=== PATIENT | female | born 1940 | race Caucasian/White ===

== ENCOUNTER 2022-08-13 21:27 | Inpatient (IN) | payer MEDICARE, BC ==
[2022-08-14 00:13] LABS: INR-International Normal Ratio 1.2; PTT 26.4 sec (22.9-36.1); Prothrombin Time 15.4 sec (12.0-14.7)
[2022-08-14 00:25] LABS: #Eosinphils 0.1 thou/uL (0.0-0.7); #Lymphocytes 0.9 thou/uL (1.20-3.40); #Monocytes 0.6 thou/uL (0.11-0.59); #Neutrophils 6.2 thou/uL (1.40-6.50); %Basophils 0.2 % (0.0-1.0); %Lymphocytes 11.1 % (21.0-51.0); %Monocytes 7.3 % (0.0-10.0); %Neutrophils 80.5 % (42.0-75.0); Hemoglobin 13.6 g/dL (12.0-16.0); Mean Corpuscular HGB CONC 33.6 g/dL (32.0-36.0); Mean Corpuscular Volume 95.3 fl (78.0-98.0); Mean Platelet Volume 6.8 fL (7.4-10.4); Platelet Count 255 10x3/uL (130-400); RBC Distribution Width 12.5 % (11.5-14.5); Red Blood Cell (RBC) Count 4.24 mill/uL (4.20-5.40); White Blood Cell (WBC) Count 7.7 10x3/uL (4.8-10.8)
[2022-08-14 00:34] LABS: ALT (SGPT) 33 U/L (8-55); AST (SGOT) 28 U/L (5-34); Albumin 3.7 g/dL (3.4-4.8); Alkaline Phosphatase 64 U/L (40-110); Anion Gap 10 mmol/L (10-20); BUN (Urea Nitrogen) 16 mg/dL (9.8-20.1); Bilirubin, Total 0.4 mg/dL (0.2-1.2); CK (CPK) 75 U/L (29-168); Calc. Creatinine Clearance 0 mL/min (70-130); Calcium 9.1 mg/dL (7.8-10.44); Carbon Dioxide 27 mmol/L (23-31); Chloride 99 mmol/L (98-107); Estimated GFR 71; Globulin 3.5 g/dL (2.4-3.5); Glucose 163 mg/dL (83-110); Potassium 3.3 mmol/L (3.5-5.1); Protein, Total 7.2 g/dL (5.8-8.1); Sodium 133 mmol/L (136-145)
[2022-08-14] MEDS ORDERED: Ondansetron PF 4 MG/2 ML Vial IVP PRN (02:40)
[2022-08-14] MEDS ORDERED: Acetaminophen 325 MG TAB PO PRN (02:40)
[2022-08-14] MEDS ORDERED: HYDROmorphone 2 MG TAB PO PRN (02:45)
[2022-08-14] MEDS ORDERED: Acetaminophen 325 MG TAB ONE ×2 (02:47→03:09)
[2022-08-14] MEDS ORDERED: Azithromycin 500 MG in Sodium Chloride 0.9% 250 ML 250 ML IVPB SCH (03:00)
[2022-08-14] MEDS ORDERED: Azithromycin 500 MG VIAL ONE (03:11)
[2022-08-14 03:58] LABS: #Lymphocytes 1.3 thou/uL (1.20-3.40); #Monocytes 0.6 thou/uL (0.11-0.59); #Neutrophils 4.6 thou/uL (1.40-6.50); %Basophils 0.2 % (0.0-1.0); %Eosinophils 0.7 % (0.0-10.0); %Lymphocytes 19.1 % (21.0-51.0); %Monocytes 9.4 % (0.0-10.0); %Neutrophils 70.7 % (42.0-75.0); Mean Corpuscular HGB CONC 34.3 g/dL (32.0-36.0); Mean Corpuscular Hemoglobin 32.7 pg (27.0-31.0); Mean Corpuscular Volume 95.3 fl (78.0-98.0); Mean Platelet Volume 6.4 fL (7.4-10.4); Platelet Count 249 10x3/uL (130-400); RBC Distribution Width 12.4 % (11.5-14.5); Red Blood Cell (RBC) Count 3.96 mill/uL (4.20-5.40); White Blood Cell (WBC) Count 6.6 10x3/uL (4.8-10.8)
[2022-08-14] MEDS ORDERED: cefTRIAXone\\ROCEPHIN 1 GM in Sodium Chloride 0.9% 100 ML IVPB SCH (04:00)
[2022-08-14] MEDS ORDERED: cefTRIAXone (ROCEPHIN) 1 GM VIAL ONE (04:23)
[2022-08-14 04:25] LABS: ALT (SGPT) 31 U/L (8-55); AST (SGOT) 33 U/L (5-34); Albumin 3.6 g/dL (3.4-4.8); Alkaline Phosphatase 58 U/L (40-110); Anion Gap 14 mmol/L (10-20); BUN (Urea Nitrogen) 13 mg/dL (9.8-20.1); Bilirubin, Total 0.4 mg/dL (0.2-1.2); Calc. Creatinine Clearance 0 mL/min (70-130); Calcium 8.6 mg/dL (7.8-10.44); Carbon Dioxide 23 mmol/L (23-31); Chloride 101 mmol/L (98-107); Estimated GFR 85; Glucose 153 mg/dL (83-110); Potassium 3.8 mmol/L (3.5-5.1); Protein, Total 6.6 g/dL (5.8-8.1); Sodium 134 mmol/L (136-145)
[2022-08-14 06:50] LABS: CKMB 3.3 ng/mL (0-6.6)
[2022-08-14] MEDS ORDERED: Metoprolol Tartrate 25 MG TAB ONE (07:59)
[2022-08-14] MEDS ORDERED: Famotidine 20 MG TAB ONE (07:59)
[2022-08-14] MEDS: hydrALAZINE 25 MG TAB PO SCH ×3 (08:57→20:49)
[2022-08-14] MEDS: Losartan 25 MG TAB PO SCH (08:58)
[2022-08-14] MEDS: Dronedarone HCl 400 MG TAB PO SCH ×2 (08:58→17:59)
[2022-08-14] MEDS ORDERED: Metoprolol Tartrate 25 MG TAB PO SCH (09:00)
[2022-08-14] MEDS ORDERED: Famotidine 20 MG TAB PO SCH (09:00)
[2022-08-14] MEDS ORDERED: Iopamidol-370 76% 500 ML MDV (1 ML CHARGE) ONE (14:44)
[2022-08-14 16:05] VITALS: BMI 23.7
[2022-08-14] MEDS: Ezetimibe 10 MG TAB PO SCH (20:49)
[2022-08-14] MEDS ORDERED: Dronedarone HCl 400 MG TAB PO SCH (21:00)
[2022-08-15] MEDS: Cholecalciferol 1,000 UNITS (25 MCG) TAB PO SCH (08:56)
[2022-08-15] MEDS: Dronedarone HCl 400 MG TAB PO SCH ×2 (08:57→17:36)
[2022-08-15] MEDS: Sodium Chloride 1 GM TAB PO SCH (08:58)
[2022-08-15] MEDS: Losartan 25 MG TAB PO SCH (08:58)
[2022-08-15] MEDS: hydrALAZINE 25 MG TAB PO SCH ×3 (08:59→21:48)
[2022-08-15] MEDS: Venlafaxine HCl XR 75 MG CAP PO SCH (09:00)
[2022-08-15] MEDS: Timolol 0.5% Ophth Soln 5 ml Bottle EA EYE SCH (09:03)
[2022-08-15] MEDS: Floranex 1 GM Packet PO SCH (09:08)
[2022-08-15] MEDS: Ezetimibe 10 MG TAB PO SCH (21:48)
[2022-08-16] MEDS ORDERED: cloNIDine 0.1 MG TAB PO SCH (00:30)
[2022-08-16] MEDS: hydrALAZINE 25 MG TAB PO SCH ×2 (08:29→16:55)
[2022-08-16] MEDS: Cholecalciferol 1,000 UNITS (25 MCG) TAB PO SCH ×2 (08:29→08:33)
[2022-08-16] MEDS: Dronedarone HCl 400 MG TAB PO SCH (08:29)
[2022-08-16] MEDS: Losartan 25 MG TAB PO SCH (08:29)
[2022-08-16] MEDS: Floranex 1 GM Packet PO SCH (08:29)
[2022-08-16] MEDS: Sodium Chloride 1 GM TAB PO SCH (08:30)
[2022-08-16] MEDS: Venlafaxine HCl XR 75 MG CAP PO SCH (08:30)
[2022-08-16] MEDS: Timolol 0.5% Ophth Soln 5 ml Bottle EA EYE SCH (08:30)
[2022-08-16] MEDS ORDERED: Aspirin Chewable 81 MG TAB PO SCH (10:30)
[2022-08-16 16:18] VITALS: TEMP 97.8
[2022-08-16 17:18] VITALS: BP 212/91
[2022-08-17] MEDS ORDERED: Aspirin Chewable 81 MG TAB PO SCH (09:00)
== END 2022-08-16 17:50 | DRG 605 ==
LOC: ERS 21:27 → ERHOLD 08-14 01:08 → 2NO 08-14 14:54 → OBSVTOIN 08-14 17:14
PROVIDERS: ADMIT Internal Medicine; ATTEND Internal Medicine
DX: S00.03XA Contusion of scalp, initial encounter (principal); M48.54XA Collapsed vertebra, not elsewhere classified, thoracic region, initial encounter for fracture; I48.92 Unspecified atrial flutter; I48.0 Paroxysmal atrial fibrillation; E78.5 Hyperlipidemia, unspecified; R29.6 Repeated falls; W18.30XA Fall on same level, unspecified, initial encounter; E87.6 Hypokalemia; K21.9 Gastro-esophageal reflux disease without esophagitis; Z60.2 Problems related to living alone; Z88.1 Allergy status to other antibiotic agents; Z88.5 Allergy status to narcotic agent; Z88.2 Allergy status to sulfonamides; Z88.8 Allergy status to other drugs, medicaments and biological substances; Z91.81 History of falling; Z98.890 Other specified postprocedural states; Z90.710 Acquired absence of both cervix and uterus; Z79.899 Other long term (current) drug therapy; Z79.01 Long term (current) use of anticoagulants; Z79.84 Long term (current) use of oral hypoglycemic drugs
CPT/HCPCS: 36415; 70450; 71045; 71260; 72125; 72170; 80053; 82550; 82553; 84484; 85025; 85610; 85730; 93005; 93306; 93880; 94760; 96374; 96375; 97139; G0378; J0456; J0696; J3490; J7050; Q9967